=== PATIENT | female | born 1960 | race Caucasian/White ===

== ENCOUNTER 2016-11-11 19:39 | Emergency (ER) | payer MEDICARE ==
[~2016-11-11] VITALS: Ht 167.6 cm; Wt 77.3 kg
[~2016-11-11 19:39] MED LIST: GABA600T2 PO; HYDR200T PO; KLO5T PO; LEVO88TA4 PO; OMEP-113 PO; PROP40TA5 PO; TAPE100T5 PO; TAPE50TA9 PO; TRAZ-118 PO
[2016-11-11 19:42] VITALS: BP 116/69; PULSE 73; RESP 16; O2SAT 94
--- NOTE | 2016-11-11 19:59 | ED.REPORT ---
HPI-Headache Date of Service Nov 11, 2016 ED Provider: Hector Dooley DO A 56 year old female with a history of migraines and fibromyalgia presents to the ED complaining of a migraine headache. The headache began gradually four days ago and has persisted since, located in the front of her head and behind her eyes. This is described as the pt's normal headache pain but slightly more severe, rated at 9/10 at its worst. This is accompanied by nausea and photophobia, though the pt denies vomiting, nasal congestion or neck stiffness. The pain has prevented the pt from sleeping normally, and has not been relieved by the use of home medications including Fioricet and home narcotics. The pt's headaches have been relieved by Dilaudid in the past. Nursing Notes Stated Complaint: MIGRAINE Chief Complaint: Headache Nursing Notes Reviewed: Yes Allergies: Coded Allergies: No Known Drug Allergies (Verified Allergy, Mild, 11/11/16) Scheduled Gabapentin (Gabapentin) 600 Mg Tablet 600 MG PO BID Hydroxychloroquine Sulfate (Plaquenil) 200 Mg Tablet 200 MG PO BID Levothyroxine (Levothyroxine) 88 Mcg Tablet 88 MCG PO DAILY Omeprazole Magnesium (Omeprazole) 20 Mg Capsule.dr 20 MG PO DAILY Propranolol HCl (Propranolol HCl) 40 Mg Tablet 80 MG PO DAILY Tapentadol (Nucynta) 100 Mg Tablet 150 MG PO BID Tapentadol ER (Nucynta ER) 50 Mg Tab.er.12h 50 MG PO BID Trazodone (Trazodone) 100 Mg Tablet 100 MG PO HS Scheduled PRN Clonazepam (Clonazepam) 0.5 Mg Tab 0.5 MG PO BID PRN PRN For Anxiety General Time Seen by MD: 19:57 Chief Complaint Migraine headache Hx Obtained From: Patient Arrived By: Walk-in Sudden in Onset?: No Onset Occurred: 4 days ago Symptom Duration: Since onset Recent Healthcare: No recent hospitalization, Recent doctor visit Similar Sx Previous: Yes Past Medical History Past Medical History migraines fibromyalgia thyroid disease palpitations URI depression anxiety Past Surgical History urethral dilation bilateral patellar releases with repeat right Reports: Tonsillectomy Smoking History Never Smoker Social History Other Social History: Good social support, Ambulatory Status Independent Review of Systems Review of Systems Note: denies neck stiffness Eyes: Reports: Photophobia Ears / Nose / Throat: Denies: Nasal congestion GI: Reports: Nausea, Denies: Abdominal pain, Vomiting Musculoskeletal: Denies: Back pain, Neck pain Skin: Denies Rash Neurologic: Reports: Headache Complete sys rev & neg: except as marked. Physical Exam Initial Vital Signs Vital Signs (First) Date Time Temp Pulse Resp B/P Pulse Ox O2 Delivery O2 Flow Rate FiO2 11/11/16 19:42 36.7 73 16 116/69 94 Room Air Initial VS: Reviewed General/Constitutional: Awake, Alert Head / Eyes: Atraumatic, Normocephalic, PERRL, EOMI Neck: Atraumatic, Supple, Full range of motion Neurologic: Oriented X3, Speech NL, No motor deficits, No sensory deficits, CN II - XII intact ENT: Atraumatic, Airway patent, Mucous membranes moist Respiratory / Chest: Atraumatic, Breath sounds NL, Breath sounds = bilat, No respiratory distress Cardiovascular: Heart rate NL, Regular rhythm, Heart sounds NL Abdomen: Atraumatic, Soft, Non-tender Skin: Atraumatic, Color NL, No rash, Warm, Dry Psychiatric: Affect NL, Mood NL Back: Atraumatic, Full range of motion Upper Extremity / MS: Atraumatic, Full range of motion Lower Extremity / Pelvis / MS: Atraumatic, Full range of motion Interpretation & Diagnostics Lab Results Interpretation Test 11/11/16 20:36 Hold Purple Top Tube Received (Received) Hold Blue Top Tube Received (Received) Hold [place] Top Tube Received (Received) Re-Eval/Medical Decision Med Decision/Clinical Course 56-year-old female with a history of chronic headaches presents today noting she has had a headache for the last 4 days that is not being alleviated with her typical medications like Fioricet and her chronic narcotics. She notes that the only thing that works for her is Dilaudid. I discussed with her that our policy is to try to avoid using narcotics as they can worsen chronic headache problems. I attempted to treat her with dexamethasone, fluids, Toradol , Phenergan, Benadryl, Haldol, and Ativan but headache still persisted. She was given 1 mg of Dilaudid and sent home after her headache improved. I did not perform lab studies or CT as she notes that her headache was very similar to previous headaches and that she was seeking relief, not concerned about a new or different etiology. No red flags identified. She will follow up with her PCP for further headache management. Source of Hx: Old records Re-Evaluation/Progress : Time of Eval: 10:37 )( Patient Status: Condition improved Re-Evaluation/Progress Note: Pt rechecked, who is sleeping but easily woken. Her pain has improved slightly with medications. The diagnosis and plan for discharge are discussed. The pt understands and agrees with the plan. All questions are addressed at this time. Counseled Regarding: Diagnosis, Lab results, Need for follow-up, When/why to return to ED Discharge & Departure Impression: Primary Impression: Headache Headache type: unspecified Headache chronicity pattern: acute headache Intractability: not intractable Qualified Code: R51 - Headache Disposition: Home Discharge Condition All VS Reviewed: Yes Condition: Stable Patient Instructions: Acute Headache (ED) Additional Instructions: Thank you for entrusting us with your care. Your evaluation was reassuring with no dangerous causes suspected for your symptoms. Rest and continue your home medications. Call your primary care physician to arrange a follow up appointment in the next several days. Return to the emergency department if you develop any new or worsening symptoms. Referrals: Ming Moulton MD (PCP) Scribe Attestation Portions of this note were transcribed by Donovan Bates. I, Dr. Dooley personally performed the history, physical exam and medical decision-making; I reviewed and confirmed the accuracy of the information in the transcribed note. copies to: Ming Moulton MD, Gary R DO Nov 11, 2016 19:58 DONOVAN BATES Nov 11, 2016 20:19
[2016-11-11] MEDS ORDERED: 0.9% Sodium Chloride 1,000 ML IV ONE (20:08)
[2016-11-11] MEDS ORDERED: Promethazine Inj 25 MG in 0.9% Sodium Chloride 50 ML IV ONE (20:10)
[2016-11-11] MEDS ORDERED: Dexamethasone 10 mg/mL Inj IVPUSH ONE (20:10)
[2016-11-11] MEDS ORDERED: Haloperidol 5 mg/mL Inj IVPUSH ONE (20:10)
[2016-11-11] MEDS ORDERED: HYDROmorphone 1 mg/mL Inj IVPUSH ONE (21:45)
[2016-11-11 22:17] VITALS: BP 116/70; PULSE 64; RESP 16; O2SAT 98
== END 2016-11-11 22:21 | disposition home or self-care (01) ==
LOC: SED 19:39
DX: R51 Headache (principal); R11.0 Nausea; H53.149 Visual discomfort, unspecified; M79.7 Fibromyalgia; F41.8 Other specified anxiety disorders; E07.9 Disorder of thyroid, unspecified; Z98.890 Other specified postprocedural states
CPT/HCPCS: 96361; 96374; 96375; 99284; J1100; J1170; J1200; J1630; J1885; J2060; J2550; J7030